=== PATIENT | female | born 1990 | race Caucasian/White ===

== ENCOUNTER 2019-01-28 04:23 | Emergency (ER) | payer MEDICAID ==
[~2019-01-28] VITALS: Ht 165.1 cm; Wt 129.1 kg
[2019-01-28] MEDS ORDERED: KETOROLAC 30MG/ML VIAL IV STA (06:49)
[2019-01-28] MEDS ORDERED: ONDANSETRON HCL 4MG/2ML INJ IV STA (06:49)
[2019-01-28] MEDS ORDERED: SODIUM CHLORIDE 0.9% 1,000 ML IV ONE (06:50)
[2019-01-28] MEDS ORDERED: FAMOTIDINE 20MG/2ML VIAL IV ONE (07:00)
[2019-01-28 07:10] LABS: BASOPHILS % 0.8 % (0.0-2.0); EOSINOPHILS % 1.2 % (0.0-5.0); HEMATOCRIT. 37.1 % (36.0-48.0); HEMOGLOBIN. 12.6 g/dL (12.0-16.0); LYMPHOCYTES % 28.1 % (20.0-50.0); MEAN CORPUSCULAR HEMOGLOBIN 30.5 pg (28.0-32.0); MEAN CORPUSCULAR VOLUME 89.8 fL (81.0-99.0); MEAN PLATELET VOLUME 8.7 fl (7.4-10.4); MONOCYTES % 4.2 % (2.0-8.0); NEUTROPHILS % 65.7 % (40.0-76.0); PLATELET 296 x1000/uL (130-400); RED BLOOD CELL COUNT 4.13 mill/uL (4.2-5.4); RED CELL DISTRIBUTION WIDTH 14.8 % (11.6-14.6)
[2019-01-28 07:19] LABS: CHLORIDE 98 mEq/L (98-107)
[2019-01-28 07:20] LABS: HCG SCREEN NEGATIVE
[2019-01-28 07:29] LABS: T4 FREE 0.14 ng/dL (0.76-1.46)
[2019-01-28 07:35] LABS: CLARITY URINE CLOUDY (CLEAR); COLOR URINE YELLOW (YELLOW); KETONES URINE NEGATIVE (NEGATIVE); LEUKOCYTE ESTERASE URINE NEGATIVE (NEGATIVE); NITRITE URINE NEGATIVE (NEGATIVE); OCCULT BLOOD URINE NEGATIVE (NEGATIVE); PROTEIN URINE 2+ (NEGATIVE); SPECIFIC GRAVITY URINE 1.026 (1.005-1.030); UROBILINOGEN URINE 0.2 E.U./dL (0.2-1.0)
[2019-01-28 09:25] VITALS: BP 125/70
== END 2019-01-28 09:25 | disposition home or self-care (01) ==
LOC: ER 04:23
DX: R10.84 Generalized abdominal pain (principal); R07.89 Other chest pain; E03.9 Hypothyroidism, unspecified; E11.65 Type 2 diabetes mellitus with hyperglycemia
CPT/HCPCS: 36415; 71045; 74176; 80053; 81003; 81025; 82962; 83690; 83880; 84439; 84443; 84484; 84703; 85025; 93005; 96361; 96374; 96375; 99284; J1885; J2405; J3490; J7030

== ENCOUNTER 2023-09-04 13:56 | Emergency (ER) | payer MEDICAID, OTHER ==
[~2023-09-04] VITALS: Ht 165.1 cm; Wt 114.0 kg
[2023-09-04 14:09] VITALS: O2SAT 99
[2023-09-04 15:35] LABS: BASOPHILS % 0.3 % (0.0-2.0); EOSINOPHILS % 1.3 % (0.0-5.0); HEMATOCRIT. 33.4 % (36.0-48.0); HEMOGLOBIN. 10.8 g/dL (12.0-16.0); LYMPHOCYTES % 20.2 % (20.0-50.0); MEAN CORPUSCULAR HGB CONC 32.4 g/dL (31.0-37.0); MEAN CORPUSCULAR VOLUME 83.5 fL (81.0-99.0); MEAN PLATELET VOLUME 9.8 fl (7.4-10.4); MONOCYTES % 6.1 % (2.0-8.0); NEUTROPHILS % 72.1 % (40.0-76.0); PLATELET 245 x1000/uL (130-400); RED BLOOD CELL COUNT 4.01 mill/uL (4.2-5.4); RED CELL DISTRIBUTION WIDTH 15.5 % (11.6-14.6); WHITE BLOOD COUNT 9.3 x1000/uL (4.5-11.0)
[2023-09-04 15:42] LABS: HCG SCREEN NEGATIVE
[2023-09-04 15:48] LABS: ALANINE AMINOTRANSFERASE 19 IU/L (10-49); ALBUMIN 3.9 g/dL (3.2-4.8); ASPARTATE AMINOTRANSFERASE 21 IU/L (<34); BILIRUBIN TOTAL 0.3 mg/dL (0.1-1.0); CALCIUM 8.8 mg/dL (8.7-10.4); CARBON DIOXIDE 29 mEq/L (21-32); CHLORIDE 106 mEq/L (98-107); CREATININE 0.5 mg/dL (0.6-1.0); GLUCOSE 104 mg/dL (70-105); POTASSIUM 3.2 mEq/L (3.5-5.1); PROTEIN TOTAL 6.5 g/dL (6.0-8.3); SODIUM 140 mEq/L (136-145); UREA NITROGEN BLOOD 6 mg/dL (9-23)
[2023-09-04] MEDS: MORPHINE SULFATE 2 MG/ML CPJ (NOT FOR IM USE) IV ONE (16:45)
[2023-09-04 19:30] VITALS: BP 142/89; PULSE 80; RESP 18; TEMP 98.7
== END 2023-09-04 20:04 | disposition home or self-care (01) ==
LOC: ER 13:56
DX: Z04.3 Encounter for examination and observation following other accident (principal); E11.9 Type 2 diabetes mellitus without complications; E03.8 Other specified hypothyroidism; W01.0XXA Fall on same level from slipping, tripping and stumbling without subsequent striking against object, initial encounter; Y93.89 Activity, other specified; Y92.89 Other specified places as the place of occurrence of the external cause; Y99.8 Other external cause status
CPT/HCPCS: 36415; 73560; 73590; 74176; 80053; 84703; 85025; 99284

== ENCOUNTER 2025-06-15 18:18 | Emergency (ER) | payer MEDICAID, OTHER ==
[~2025-06-15] VITALS: Ht 165.1 cm; Wt 79.0 kg
[2025-06-15 18:32] VITALS: O2SAT 99
[2025-06-15] MEDS ORDERED: BO1 TP (18:55)
[2025-06-15 19:13] VITALS: BP 122/71; PULSE 90; RESP 18; TEMP 36.7; O2SAT 99
== END 2025-06-15 19:27 | disposition home or self-care (01) ==
LOC: ER 18:30
DX: T22.012A Burn of unspecified degree of left forearm, initial encounter (principal); T30.0 Burn of unspecified body region, unspecified degree; Z90.49 Acquired absence of other specified parts of digestive tract; Z98.84 Bariatric surgery status; X58.XXXA Exposure to other specified factors, initial encounter; Y93.89 Activity, other specified; Y92.89 Other specified places as the place of occurrence of the external cause; Y99.8 Other external cause status
CPT/HCPCS: 99282